=== PATIENT | female | born 1980 | race Caucasian/White ===

== ENCOUNTER 2022-05-09 08:30 | Outpatient (CLI) | payer OTHER, SELFPAY ==
--- NOTE | 2022-05-09 08:15 | CRLHL7_ITS ---
For Patients: As a result of the Century Cures Act, medical imaging exams and procedure reports are released immediately into your electronic medical record. You may view this report before your referring provider. If you have questions, please contact your health care provider. BILATERAL SCREENING MAMMOGRAM WITH COMPUTER-AIDED DETECTION AND TOMOSYNTHESIS TECHNIQUE: CC and MLO views were obtained. These mammographic images have been obtained using full-field digital technique. These mammographic images were interpreted with the benefit of computer-aided detection. Breast Tomosynthesis was used in this interpretation. COMPARISON FILM: 12/07/20, 10/08/19. FINDINGS: The breasts are heterogeneously dense, which may obscure small masses IMPRESSION: There is no radiographic evidence for malignancy. ASSESSMENT: BI-RADS Category 2: Benign RECOMMENDATION: Routine screening mammogram in 1 year. A lay language report of this examination will be provided to the patient. Kiel Escamilla M.D. Diagnostic Radiologist [email or web address] NIK/Dictated by: Kiel Escamilla MD @ 05/09/2022 9:50:00 AM (Electronically Signed)
== END 2022-05-09 08:31 | disposition home or self-care (01) ==
LOC: MAMMO 08:31
PROVIDERS: PCP Internal Medicine; Visit Provider Internal Medicine
DX: Z12.31 Encounter for screening mammogram for malignant neoplasm of breast (principal); R92.2 Inconclusive mammogram
CPT/HCPCS: 77063; 77067

== ENCOUNTER 2022-08-01 10:27 | Outpatient (CLI) | payer OTHER, SELFPAY ==
[2022-08-01 14:27] LABS: Albumin* 4.9 g/dL (3.3-5.0); Chloride* 96 mmol/L (96-114); Sodium* 138 mmol/L (135-149)
[2022-08-01 14:28] LABS: Potassium* 3.1 mmol/L (3.6-5.1)
[2022-08-01 14:30] LABS: Alkaline Phosphatase* 183 U/L (40-150); Aspartate Amino Transferase* 201 U/L (12-35); Carbon Dioxide* 30 mmol/L (20-32); Creatinine* 0.8 mg/dL (0.5-1.5); Estimated Glomerular Filt Rate 94 ml/min; Total Protein* 7.8 g/dL (6.0-8.3)
[2022-08-01 14:31] LABS: Alanine Aminotransferase* 108 U/L (4-35); Blood Urea Nitrogen* 11 mg/dL (5-24); Calcium* 9.9 mg/dL (8.4-10.6); Glucose* 96 mg/dL (60-115)
[2022-08-01 14:33] LABS: C Reactive Protein* 2.8 mg/dL (0.5-1.0)
== END 2022-08-01 10:28 | disposition home or self-care (01) ==
PROVIDERS: PCP Internal Medicine; Visit Provider Family Medicine
DX: R10.9 Unspecified abdominal pain (principal); R30.0 Dysuria
CPT/HCPCS: 80053; 86140; 87086

== ENCOUNTER 2022-10-26 12:05 | Outpatient (CLI) | payer OTHER, SELFPAY | END 2022-10-26 12:06 | disposition home or self-care (01) | LOC: NFLDREF 10-28 12:29 | PROVIDERS: PCP Internal Medicine; Referring Provider Internal Medicine; Visit Provider Internal Medicine | DX: E03.9 Hypothyroidism, unspecified (principal) | CPT/HCPCS: 84443 ==

== ENCOUNTER 2022-11-14 14:12 | Outpatient (CLI) | payer OTHER, SELFPAY | END 2022-11-14 14:13 | disposition home or self-care (01) | LOC: NFLDREF 11-16 03:32 | PROVIDERS: PCP Internal Medicine; Referring Provider Internal Medicine; Visit Provider Internal Medicine | DX: R30.0 Dysuria (principal); N39.0 Urinary tract infection, site not specified | CPT/HCPCS: 87086; 87186 ==

== ENCOUNTER 2023-01-27 21:30 | Inpatient (IN) | payer OTHER, SELFPAY ==
[2023-01-27] VITALS (12 sets, daily range): BP systolic 128–184; BP diastolic 88–114; PULSE 107–125; RESP 20; TEMP 36.8; O2SAT 95–99; BMI 26.6
[2023-01-27] MEDS: ONDANSETRON 2 MG/ML inj 4 MG IVP (22:46)
[2023-01-27] MEDS: 0.9 % SODIUM CHLORIDE 1000 ml 1,000 ML IV (22:46)
--- NOTE | 2023-01-27 23:06 | ED.GENADULT ---
HPI - General Adult General Chief complaint: Abdominal Pain Stated complaint: Abdominal Pain Time Seen by Provider: 01/27/23 22:25 History of Present Illness HPI narrative: Patient reports a few days of centralized abdominal pain as well as nausea and vomiting. Patient appears diaphoretic though temperature is 98.2 orally. Does endorse daily drinking though has recently begun to try and cut back. 42-year-old woman presenting to the emergency department with 1 week of mid upper abdominal pain and similar duration of vomiting. Also some diarrhea. No melena or hematochezia. Has tried treatment with Pepto-Bismol; this came up. Has to been vomiting water as well. Last alcoholic drink was about 5 days ago. No fever. She does not think she is in withdrawal. Has never attended treatment or detox. Has been working to cut back her alcohol consumption in discussion with her primary care provider. Does not have known gallbladder disease apparently. Reports taking medications as prescribed other than limitations by vomiting over this week. Related Data Home Medications Medication Instructions Recorded Confirmed levonorgestrel 21 mcg/24 hours (8 1 device intrauterine ONCE 08/01/22 03/12/23 yrs) 52 mg intrauterine device (Mirena) levothyroxine 75 mcg tablet 75 mcg PO DAILY 01/28/23 03/12/23 Previous Rx's Medication Instructions Recorded bupropion HCl 150 mg 24 hr tablet, 450 mg (3 x 150 mg) PO DAILY 02/21/23 extended release Depression #90 tabs spironolactone 100 mg tablet 100 mg PO DAILY Hypertension #30 05/30/23 tabs Allergies Allergy/AdvReac Type Severity Reaction Status Date / Time No Known Drug Allergies Allergy Verified 03/12/23 14:26 Review of Systems Status of ROS: Reports: 6 or more systems reviewed and unremarkable except as noted in History and below [facility] Medical History (Updated 02/07/23 @ 00:01 by Background Daemdelia) Pilonidal cyst ?L05.91 - Pilonidal cyst without abscess (ICD-10) Frequent UTI ?N39.0 - Urinary tract infection, site not specified (ICD-10) Alcoholism ?F10.20 - Alcohol dependence, uncomplicated (ICD-10) Generalized anxiety disorder ?F41.1 - Generalized anxiety disorder (ICD-10) Major depressive disorder ?F32.9 - Major depressive disorder, single episode, unspecified (ICD-10) Nicotine dependence (04/28/10) ?F17.200 - Nicotine dependence, unspecified, uncomplicated (ICD-10) Hypothyroidism ?E03.9 - Hypothyroidism, unspecified (ICD-10) Surgical History (Updated 01/28/23 @ 08:06 by Daisy Trimble MD) H/O breast biopsy (~2020) ?Z98.890 - Other specified postprocedural states (ICD-10) History of ureter repair ?Z98.890 - Other specified postprocedural states (ICD-10) Social History (Updated 01/28/23 @ 08:11 by Daisy Trimble MD) Narrative: Living with youngest son, 15 years old. 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 Quit tobacco (smoking) about 7 years ago. Started drinking alcohol heavily a couple of years ago. Has been sober a few times in the last few years. 4 drinks/night, hard selzer, occassionally cocktail. Alcohol use was problematic after a really tough break up and went through treatment in 2019. Current boyfriend is supportive and wanting to help her stop drinking again. What is your current living situation?: I presently have a place to live Problems where you live: no known problems Problems where you live details: none In the past 12 months, utilities in danger of being shut off: no In past 12 months, lack of transportation kept you from medical appts, meetings, work, or getting things needed for daily living: no In the past 12 mos, have been you worried that your food would run out before you had money to buy more?: never true In the past 12 mos, the food you bought just didn't last and you didn't have money to buy more?: never true Highest level of school completed/degree received: Associate degree: occupational, technical, vocational program Smoking Status: Never smoker How often do you have a drink containing alcohol: 4 or more times a week How many standard drinks containing alcohol do you have on a typical day: 5 or 6 How often do you have six or more drinks on one occasion: Weekly AUDIT-C Alcohol total score: 9 Non-prescribed substance use: denies use Caffeine: No How often does anyone, including family, friends and others, physically hurt you: never How often does anyone, including family, friends and others, insult or talk down to you: never How often does anyone, including family, friends and others, threaten you with harm: never How often does anyone, including family, friends and others, scream or curse at you: never Little interest or pleasure in doing things: several days Feeling down, depressed, or hopeless: more than half the days service: No Exam Narrative: Exam Narrative: Pleasant. Seems uncomfortable. At times appears about cry or vomit. Emesis bag nearby. Intermittent eye contact. Oropharynx with black and tongue consistent with vomiting Pepto-Bismol. Skin is warm and dry. Extremities are without edema. She is well-perfused. Oropharynx is sticky. There is mild smell of ketones. Lungs appear to be clear. Heart is tachycardic in a regular rhythm. Abdomen is with normoactive bowel sounds. Soft. Quite tender in the mid abdomen into the epigastrium little bit to the left hypogastrium as well. More mild tenderness across the low abdomen. Const: Vital Signs, click to edit/add: Vital Signs - 24 hr 01/27/23 21:41 01/27/23 21:41 01/27/23 22:42 Temperature 98.2 F Pulse Rate 116 H Pulse Rate [Pulse Oximeter] 125 H Respiratory Rate 20 Blood Pressure Blood Pressure [Ri ght Upper Arm] 184/114 H Pulse Oximetry 99 99 97 Oxygen Delivery Me thod Room Air Room Air 01/27/23 22:45 01/27/23 22:47 01/27/23 23:00 Temperature Pulse Rate 122 H 120 H 117 H Pulse Rate [Pulse Oximeter] Respiratory Rate Blood Pressure 156/88 H Blood Pressure [Ri ght Upper Arm] Pulse Oximetry 97 97 97 Oxygen Delivery Sc thod 01/27/23 23:02 01/27/23 23:15 01/27/23 23:17 Temperature Pulse Rate 115 H 121 H 115 H Pulse Rate [Pulse Oximeter] Respiratory Rate Blood Pressure 145/94 H 162/94 H Blood Pressure [Ri ght Upper Arm] Pulse Oximetry 96 96 95 Oxygen Delivery Sc thod 01/27/23 23:30 01/27/23 23:32 01/27/23 23:52 Temperature Pulse Rate 113 H 107 H 114 H Pulse Rate [Pulse Oximeter] Respiratory Rate Blood Pressure 128/111 H 156/99 H Blood Pressure [Ri ght Upper Arm] Pulse Oximetry 95 97 95 Oxygen Delivery Me thod 01/27/23 23:53 01/28/23 00:00 01/28/23 00:01 Temperature Pulse Rate 110 H 108 H 106 H Pulse Rate [Pulse Oximeter] Respiratory Rate Blood Pressure 147/97 H Blood Pressure [Ri ght Upper Arm] Pulse Oximetry 95 96 96 Oxygen Delivery Me thod 01/28/23 00:01 01/28/23 00:01 01/28/23 00:01 Temperature Pulse Rate 106 H 106 H 106 H Pulse Rate [Pulse Oximeter] Respiratory Rate Blood Pressure 147/97 H 147/97 H 147/97 H Blood Pressure [Ri ght Upper Arm] Pulse Oximetry 96 96 96 Oxygen Delivery Me thod Documenting provider has reviewed patient's vital signs: yes Course Course Hospital Course: This is a 42-year-old female who had recently seen Dr. Talley for concerns of alcoholism and wanting to quit. About 10 days ago she started having abdominal pain, nausea and vomiting that worsened and brought her into the emergency room. She was found to have acute alcoholic pancreatitis and hepatitis. She also had colitis on CT for which she will need a colonoscopy in a few weeks when she is feeling better. Please see diagnoses above for further details. With conservative management she improved and is able to tolerate adequate oral intake. She is discharged home in stable condition. Follow-up with her primary care provider. She is aware that I have recommended complete abstinence from alcohol indefinitely. Vital Signs Vital signs: Initial Vital Signs Temperature 98.2 F 01/27/23 21:41 Temperature Source Oral 01/27/23 21:41 Pulse Rate 125 H 01/27/23 21:41 Respiratory Rate 20 01/27/23 21:41 Blood Pressure 184/114 H 01/27/23 21:41 Blood Pressure Mean 137 H 01/27/23 21:41 Pulse Oximetry 99 01/27/23 21:41 Oxygen Delivery Method Room Air 01/27/23 21:41 Vital Signs Temperature 98.2 F 01/27/23 21:41 Pulse Rate 125 H 01/27/23 21:41 Respiratory Rate 20 01/27/23 21:41 Blood Pressure 184/114 H 01/27/23 21:41 Pulse Oximetry 99 01/27/23 21:41 Oxygen Delivery Method Room Air 01/27/23 21:41 Temperature 98.4 F 01/30/23 11:00 Pulse Rate 98 01/30/23 11:00 Respiratory Rate 16 01/30/23 11:00 Blood Pressure 138/103 H 01/30/23 11:00 Pulse Oximetry 98 01/30/23 11:00 Oxygen Delivery Method Room Air 01/30/23 11:00 Medical Decision Making MDM Narrative Medical decision making narrative: Leading differential is alcoholic pancreatitis. Might be alcoholic gastritis. Certainly dehydration. Less likely infectious gastroenteritis. Pending labs. Will be initiated on L of normal saline. Also getting Zofran. Does have quite a bit of pain I think would benefit from Dilaudid. I suspect will need to be admitted. Given degree of discomfort and anticipated diagnosis, I have already ordered abdomen pelvis contrasted CT. On reassessment with less nausea. Lipase initially at 1838. TSH also quite elevated. In October of this year was normal at about 1.5. Curious as I understand without medication changes and only been missing thyroid replacement over this week. Transaminases and indirect bilirubin are moderately elevated. Alcohol level as expected is negative. Review by me of contrasted CT abdomen pelvis appears to show some haziness about the pancreas. Pending over-read by Radiology ...eventually noting evidence of colitis but no convincing imaging evidence of pancreatitis. Clinically does have pancreatitis. Unclear etiology to this colitis at this time. Have discussed with overnight hospitalist for admission. Have written holding orders due to EMR downtime Medical Records Medical records reviewed: Yes I reviewed the patient's medical records Lab Data Lab results reviewed: Yes I reviewed the patient's lab results Labs: Lab Results 01/27/23 01/27/23 01/27/23 Range/Units 21:45 23:41 23:50 WBC 7.19 (4.50-11.00) K/uL RBC 4.05 (4.00-5.20) m/uL Hgb 15.5 (12.0-16.0) gm/dL Hct 43.9 (33.0-51.0) % MCV 108 H (80-100) fL MCH 38 H (26-34) pg MCHC 35 (32-36) gm/dL RDW Coeff of [place] 14.0 (11.5-15.5) % Plt Count 220 (140-440) K/uL Neut % (Auto) 66.3 (42.0-72.0) % Lymph % (Auto) 19.6 L (20-44) % Chaves % (Auto) 12.7 H (0.0-11.0) % Eos % (Auto) 0.3 (0.0-7.0) % Baso % (Auto) 0.3 (0.0-3.0) % Neut # (Auto) 4.77 (1.7-7.0) K/uL Lymph # (Auto) 1.40 (0.90-2.90) K/uL Chaves # (Auto) 0.90 (0.00-0.90) K/UL Eos # (Auto) 0.02 (0.00-0.50) K/uL Baso # (Auto) 0.02 (0.00-0.30) K/uL Sodium 131 L (135-149) mmol/L Potassium 3.2 L (3.6-5.1) mmol/L Chloride 95 L (96-114) mmol/L Carbon Dioxide 20 (20-32) mmol/L BUN 9 (5-24) mg/dL Creatinine 0.9 (0.5-1.5) mg/dL Estimated Creat Clear 66.67 Estimated GFR 81 ml/min Glucose 80 (60-115) mg/dL Lactate 2.8 H (0.5-1.9) mmol/L Calcium 9.6 (8.4-10.6) mg/dL Magnesium 1.9 (1.5-2.6) mg/dL Total Bilirubin 2.2 H (0.1-1.5) mg/dL Direct Bilirubin 0.6 H (0.0-0.5) mg/dL AST 242 H (12-35) U/L ALT 92 H (4-35) U/L Alkaline Phosphatase 174 H (40-150) U/L C-Reactive Protein 1.1 H (0.5-1.0) mg/dL Total Protein 8.7 H (6.0-8.3) g/dL Albumin 5.2 H (3.3-5.0) g/dL Triglycerides (40-149) mg/dL Lipase 1838 H (23-300) U/L TSH 9.960 H (0.270-4.20) uIU/mL Urine Color Yellow (Yellow) Urine Appearance Clear (Clear) Urine pH 6.5 (5.0-8.5) Ur Specific [place] <= 1.005 (1.000-1.030) Urine Protein Negative (Negative) Urine Glucose (UA) Negative (Negative) Urine Ketones 1+ A (Negative) Urine Blood Trace-lysed A (Negative) Urine Nitrite Negative (Negative) Urine Bilirubin Negative (Negative) Urine Urobilinogen 0.2 (0.2-1.0) Ur Leukocyte Esterase Negative (Negative) Urine RBC 5-10 A (0-2) Urine WBC 0-2 (0-5) Ur Squamous Epith Cells Few (None-Few) Urine Bacteria Few A (None) Ur Creatinine per Vol mg/dL Ur Creatinine 24 Hour (700-1600) mg/d U Collection Duration hr Urine Total Volume mL Ur Sodium per Vol mmol/L Ur Sodium mmol/Day (51-286) mmol/d Urine Opiates Screen Negative (Negative) Ur Oxycodone Screen Negative (Negative) Urine Methadone Screen Negative (Negative) Ur Propoxyphene Screen Negative (Negative) Ur Barbiturates Screen Negative (Negative) U Tricyclic Antidepress Negative (Negative) Ur Phencyclidine Scrn Negative (Negative) Ur Amphetamines Screen Negative (Negative) U Methamphetamines Scrn Negative (Negative) U Benzodiazepines Scrn Negative (Negative) Urine Cocaine Screen Negative (Negative) U Marijuana (THC) Screen POSITIVE A* (Negative) Ur Drug Screen Comment See Note Ethyl Alcohol < 0.01 L (0.01-0.03) % Lab Acknowledgement Test Added 01/28/23 01/28/23 Range/Units 04:42 06:07 WBC (4.50-11.00) K/uL RBC (4.00-5.20) m/uL Hgb (12.0-16.0) gm/dL Hct (33.0-51.0) % MCV (80-100) fL MCH (26-34) pg MCHC (32-36) gm/dL RDW Coeff of [place] (11.5-15.5) % Plt Count (140-440) K/uL Neut % (Auto) (42.0-72.0) % Lymph % (Auto) (20-44) % Chaves % (Auto) (0.0-11.0) % Eos % (Auto) (0.0-7.0) % Baso % (Auto) (0.0-3.0) % Neut # (Auto) (1.7-7.0) K/uL Lymph # (Auto) (0.90-2.90) K/uL Chaves # (Auto) (0.00-0.90) K/UL Eos # (Auto) (0.00-0.50) K/uL Baso # (Auto) (0.00-0.30) K/uL Sodium 136 (135-149) mmol/L Potassium 3.3 L (3.6-5.1) mmol/L Chloride 103 (96-114) mmol/L Carbon Dioxide 23 (20-32) mmol/L BUN 8 (5-24) mg/dL Creatinine 0.8 (0.5-1.5) mg/dL Estimated Creat Clear 75.01 Estimated GFR 94 ml/min Glucose 67 (60-115) mg/dL Lactate (0.5-1.9) mmol/L Calcium 8.0 L (8.4-10.6) mg/dL Magnesium 2.0 (1.5-2.6) mg/dL Total Bilirubin (0.1-1.5) mg/dL Direct Bilirubin (0.0-0.5) mg/dL AST (12-35) U/L ALT (4-35) U/L Alkaline Phosphatase (40-150) U/L C-Reactive Protein (0.5-1.0) mg/dL Total Protein (6.0-8.3) g/dL Albumin (3.3-5.0) g/dL Triglycerides 113 (40-149) mg/dL Lipase (23-300) U/L TSH (0.270-4.20) uIU/mL Urine Color (Yellow) Urine Appearance (Clear) Urine pH (5.0-8.5) Ur Specific [place] (1.000-1.030) Urine Protein (Negative) Urine Glucose (UA) (Negative) Urine Ketones (Negative) Urine Blood (Negative) Urine Nitrite (Negative) Urine Bilirubin (Negative) Urine Urobilinogen (0.2-1.0) Ur Leukocyte Esterase (Negative) Urine RBC (0-2) Urine WBC (0-5) Ur Squamous Epith Cells (None-Few) Urine Bacteria (None) Ur Creatinine per Vol 47 mg/dL Ur Creatinine 24 Hour Not Applicable (700-1600) mg/d U Collection Duration Random hr Urine Total Volume Random mL Ur Sodium per Vol 22 mmol/L Ur Sodium mmol/Day Not Applicable (51-286) mmol/d Urine Opiates Screen (Negative) Ur Oxycodone Screen (Negative) Urine Methadone Screen (Negative) Ur Propoxyphene Screen (Negative) Ur Barbiturates Screen (Negative) U Tricyclic Antidepress (Negative) Ur Phencyclidine Scrn (Negative) Ur Amphetamines Screen (Negative) U Methamphetamines Scrn (Negative) U Benzodiazepines Scrn (Negative) Urine Cocaine Screen (Negative) U Marijuana (THC) Screen (Negative) Ur Drug Screen Comment Ethyl Alcohol (0.01-0.03) % Lab Acknowledgement Test Added Discharge Plan Discharge Clinical Impression: Acute alcoholic pancreatitis, Abdominal pain, Dehydration, Colitis Condition: Improved Activity Level: No Restrictions Discharge Diet: Regular
[2023-01-27] MEDS: HYDROmorphone 0.5 mg/0.5 ml inj IVP (23:11)
[2023-01-27 23:13] LABS: Lactate* 2.8 mmol/L (0.5-1.9)
[2023-01-27 23:15] LABS: Basophils Absolute Auto 0.02 K/uL (0.00-0.30); Basophils Percent Auto 0.3 % (0.0-3.0); Eosinophils Absolute Auto 0.02 K/uL (0.00-0.50); Eosinophils Percent Auto 0.3 % (0.0-7.0); Hematocrit 43.9 % (33.0-51.0); Hemoglobin* 15.5 gm/dL (12.0-16.0); Immature Granulocytes Abs Auto 0.06 K/uL (0.00-0.30); Immature Granulocytes Pct Auto 0.8 %; Lymphocytes Percent Auto 19.6 % (20-44); Mean Corpuscular HGB Conc 35 gm/dL (32-36); Mean Corpuscular Hemoglobin 38 pg (26-34); Mean Corpuscular Volume 108 fL (80-100); Monocytes Percent Auto 12.7 % (0.0-11.0); Neutrophils Absolute Auto 4.77 K/uL (1.7-7.0); Neutrophils Percent Auto 66.3 % (42.0-72.0); Platelet Count* 220 K/uL (140-440); Red Blood Count 4.05 m/uL (4.00-5.20); Slide Review Reflex No; White Blood Count* 7.19 K/uL (4.50-11.00)
--- NOTE | 2023-01-27 23:19 | CRLHL7_ITS ---
For Patients: As a result of the Century Cures Act, medical imaging exams and procedure reports are released immediately into your electronic medical record. You may view this report before your referring provider. If you have questions, please contact your health care provider. INDICATION: Mid upper abdominal pain for 1 week with vomiting, evaluate for pancreatitis TECHNIQUE: Contrast-enhanced CT of the abdomen and pelvis was performed after administration of 74 cc Isovue 370. Coronal and sagittal reformats were obtained on an independent workstation. COMPARISON: None FINDINGS: Chest: Lung bases: Calcified granuloma in the right lower lobe. No suspicious pulmonary nodules or consolidation. No basilar pleural effusion. Heart base: Unremarkable. Abdomen/Pelvis: Liver: Non-cirrhotic morphology. Diffuse hypoattenuation of the liver. No suspicious lesion. Gallbladder: Hydropic with no wall thickening or pericholecystic fluid. Bile ducts no intra or extrahepatic biliary ductal dilatation. Spleen: Normal in size. Calcified granuloma suggestive of prior granulomatous infection. Adrenal glands: Unremarkable. Kidneys: Symmetric enhancement with no hydronephrosis or nephrolithiasis bilaterally. Pancreas: No inflammation, fluid collection, mass or pancreatic ductal dilatation. Lymph nodes: No retroperitoneal, mesenteric, inguinal, or pelvic adenopathy by CT criteria. Bowel: Small and large bowel is normal in caliber, without obstruction. Normal appendix (2/109). Mucosal hyperenhancement of the cecum and colon at the hepatic flexure with liquid stool and fat stranding in the right paracolic gutter (2/81, 93, 4/62). No pneumatosis, pneumoperitoneum or portal venous gas. Vascular structures: Abdominal aorta is normal in caliber, without aneurysm. Proximal mesenteric vessels are patent. Hepatic, portal, splenic and bilateral renal veins are patent. Peritoneum: No abdominal/pelvic ascites. Abdominal Wall: Unremarkable. Urinary bladder: Limited evaluation due to underdistention. No gross pathology. Reproductive structures: IUD is in place. MSK: No acute fractures. No aggressive appearing lytic or blastic osseous lesion. IMPRESSION: 1. No CT evidence of acute pancreatitis, as clinically queried. 2. Mucosal hyperenhancement of the cecum and colon at the hepatic flexure with liquid stool and fat stranding in the right paracolic gutter suggestive of colitis of infectious or inflammatory etiology. Normal appendix. - Recommend a colonoscopy after symptomatic improvement to evaluate for any underlying lesion. 3. Diffuse hepatic steatosis. Please note that all CT scans at this facility use dose modulation, iterative reconstruction, and/or weight-based dosing when appropriate to reduce radiation dose to as low as reasonably achievable. Dictated by Marina Gr MD @ 01/28/2023 1:03:52 AM (Electronically Signed)
[2023-01-27 23:31] LABS: Albumin* 5.2 g/dL (3.3-5.0); Chloride* 95 mmol/L (96-114)
[2023-01-27 23:32] LABS: Potassium* 3.2 mmol/L (3.6-5.1); Sodium* 131 mmol/L (135-149)
[2023-01-27 23:34] LABS: Creatinine* 0.9 mg/dL (0.5-1.5); Est. Creatinine Clearance* 66.67; Estimated Glomerular Filt Rate 81 ml/min
[2023-01-27 23:35] LABS: Alanine Aminotransferase* 92 U/L (4-35); Alkaline Phosphatase* 174 U/L (40-150); Aspartate Amino Transferase* 242 U/L (12-35); Bilirubin Direct* 0.6 mg/dL (0.0-0.5); Bilirubin Total* 2.2 mg/dL (0.1-1.5); Blood Urea Nitrogen* 9 mg/dL (5-24); Calcium* 9.6 mg/dL (8.4-10.6); Carbon Dioxide* 20 mmol/L (20-32); Glucose* 80 mg/dL (60-115); Lipase* 1838 U/L (23-300); Total Protein* 8.7 g/dL (6.0-8.3)
[2023-01-27 23:38] LABS: C Reactive Protein* 1.1 mg/dL (0.5-1.0)
[2023-01-27 23:45] LABS: Ethanol* < 0.01 % (0.01-0.03)
[2023-01-27 23:56] LABS: Appearance Urine Clear (Clear); Bilirubin Urine Negative (Negative); Blood Urine Trace-lysed (Negative); Color Urine Yellow (Yellow); Glucose Urine Negative (Negative); Ketones Urine 1+ (Negative); Leukocyte Esterase Urine Negative (Negative); Nitrite Urine Negative (Negative); Protein Urine Negative (Negative); Specific Gravity Urine <= 1.005 (1.000-1.030); Urobilinogen Urine 0.2 (0.2-1.0); pH Urine 6.5 (5.0-8.5)
[2023-01-27 23:58] LABS: Magnesium* 1.9 mg/dL (1.5-2.6)
[2023-01-28] VITALS (9 sets, daily range): BP systolic 147–168; BP diastolic 94–98; PULSE 83–108; RESP 12–18; TEMP 36.1–36.8; O2SAT 95–100; BMI 27.2
[2023-01-28 00:09] LABS: Amphetamine Screen Urine Negative (Negative); Barbiturate Screen Urine Negative (Negative); Benzodiazepines Screen Urine Negative (Negative); Cocaine Screen Urine Negative (Negative); Methadone Screen Urine Negative (Negative); Methamphetamines Screen Urine Negative (Negative); Opiate Screen Urine Negative (Negative); Oxycodone Screen Urine Negative (Negative); Phencyclidine Screen Urine Negative (Negative); Tricyclic Antidepressant Urine Negative (Negative)
[2023-01-28 00:10] LABS: Cannabinoid Screen Urine POSITIVE (Negative)
[2023-01-28 00:18] LABS: Bacteria Urine Few; Squamous Epithelial Cell Urine Few (None-Few); WBC Urine 0-2 (0-5)
[2023-01-28] MEDS: 0.9 % SODIUM CHLORIDE 1000 ml 1,000 ML IV (00:59)
[2023-01-28] MEDS: MORPHINE 2 MG/ML inj IVP (02:15)
--- NOTE | 2023-01-28 04:28 | PM.FPHP ---
History of Present Illness History of Present Illness Date Seen: 01/27/23 Chief complaint: Abdominal Pain Narrative: Yael Rodriguez is a 42 year old female This patient is a 42-year-old female with a past medical history for alcohol abuse, anxiety/depression, hypothyroidism, acne who presents with abdominal pain. The patient states that she has had a 1 week of mid abdominal pain points to the epigastrium that has been worsening. She denies any change in bowel habits. She denies fevers chills. She denies chest pain shortness of breath. The patient currently works in the radiology department locally. She has been working with her PCP to decrease alcohol intake. Currently she drinks about 4 drinks of alcohol per day. She states that her last drink was 5 days ago and she denies any changes or symptoms of alcohol withdrawal. Review of Systems Status of ROS: Reports: 10 or more systems reviewed and unremarkable except as noted in History and below PFSH PFS Surgical History History of ureter repair ?Z98.890 - Other specified postprocedural states (ICD-10) Social History Smoking Status: Former smoker How often do you have a drink containing alcohol: 4 or more times a week How many standard drinks containing alcohol do you have on a typical day: 3 or 4 How often do you have six or more drinks on one occasion: Weekly AUDIT-C Alcohol total score: 8 Non-prescribed substance use: denies use Little interest or pleasure in doing things: several days Feeling down, depressed, or hopeless: more than half the days Meds Home Medications and Allergies Home Medications Medication Instructions Recorded Confirmed Type levonorgestrel 21 mcg/24 hours (8 1 device intrauterine ONCE 08/01/22 12/25/22 History yrs) 52 mg intrauterine device (Mirena) Allergies Allergy/AdvReac Type Severity Reaction Status Date / Time No Known Drug Allergies Allergy Verified 12/25/22 14:58 Exam Const: Vital Signs, click to edit/add: Vital Signs - 24 hr 01/27/23 21:41 01/27/23 21:41 01/27/23 22:42 Temperature 98.2 F Pulse Rate 116 H Pulse Rate [Pulse Oximeter] 125 H Respiratory Rate 20 Blood Pressure Blood Pressure [Ri ght Upper Arm] 184/114 H Pulse Oximetry 99 99 97 Oxygen Delivery Me thod Room Air Room Air 01/27/23 22:45 01/27/23 22:47 01/27/23 23:00 Temperature Pulse Rate 122 H 120 H 117 H Pulse Rate [Pulse Oximeter] Respiratory Rate Blood Pressure 156/88 H Blood Pressure [Ri ght Upper Arm] Pulse Oximetry 97 97 97 Oxygen Delivery Me thod 01/27/23 23:02 01/27/23 23:15 01/27/23 23:17 Temperature Pulse Rate 115 H 121 H 115 H Pulse Rate [Pulse Oximeter] Respiratory Rate Blood Pressure 145/94 H 162/94 H Blood Pressure [Ri ght Upper Arm] Pulse Oximetry 96 96 95 Oxygen Delivery Me thod 01/27/23 23:30 01/27/23 23:32 01/27/23 23:52 Temperature Pulse Rate 113 H 107 H 114 H Pulse Rate [Pulse Oximeter] Respiratory Rate Blood Pressure 128/111 H 156/99 H Blood Pressure [Ri ght Upper Arm] Pulse Oximetry 95 97 95 Oxygen Delivery Me thod 01/27/23 23:53 01/28/23 00:00 01/28/23 00:01 Temperature Pulse Rate 110 H 108 H 106 H Pulse Rate [Pulse Oximeter] Respiratory Rate Blood Pressure 147/97 H Blood Pressure [Ri ght Upper Arm] Pulse Oximetry 95 96 96 Oxygen Delivery Me thod 01/28/23 00:01 01/28/23 00:01 01/28/23 00:01 Temperature Pulse Rate 106 H 106 H 106 H Pulse Rate [Pulse Oximeter] Respiratory Rate Blood Pressure 147/97 H 147/97 H 147/97 H Blood Pressure [Ri ght Upper Arm] Pulse Oximetry 96 96 96 Oxygen Delivery Me thod : Other: Has been decreased recently on alcohol intake prior to 4 days per drink daily, 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 facial muscles grossly intact, moves all extremities without any significant focal deficit appreciated by nurse Results Labs Labs: Abnormal lab results 01/27/23 01/27/23 Range/Units 21:45 23:50 MCV 108 H (80-100) fL MCH 38 H (26-34) pg Lymph % (Auto) 19.6 L (20-44) % [place] % (Auto) 12.7 H (0.0-11.0) % Sodium 131 L (135-149) mmol/L Potassium 3.2 L (3.6-5.1) mmol/L Chloride 95 L (96-114) mmol/L Lactate 2.8 H (0.5-1.9) mmol/L Total Bilirubin 2.2 H (0.1-1.5) mg/dL Direct Bilirubin 0.6 H (0.0-0.5) mg/dL AST 242 H (12-35) U/L ALT 92 H (4-35) U/L Alkaline Phosphatase 174 H (40-150) U/L C-Reactive Protein 1.1 H (0.5-1.0) mg/dL Total Protein 8.7 H (6.0-8.3) g/dL Albumin 5.2 H (3.3-5.0) g/dL Lipase 1838 H (23-300) U/L TSH 9.960 H (0.270-4.20) uIU/mL Urine Ketones 1+ A (Negative) Urine Blood Trace-lysed A (Negative) Urine RBC 5-10 A (0-2) Urine Bacteria Few A (None) U Marijuana (THC) Screen POSITIVE A* (Negative) Ethyl Alcohol < 0.01 L (0.01-0.03) % Short CBC 01/27/23 Range/Units 21:45 WBC 7.19 (4.50-11.00) K/uL Hgb 15.5 (12.0-16.0) gm/dL Hct 43.9 (33.0-51.0) % Plt Count 220 (140-440) K/uL BMP 01/27/23 21:45 Sodium 131 L Potassium 3.2 L Chloride 95 L Carbon Dioxide 20 BUN 9 Creatinine 0.9 Glucose 80 Calcium 9.6 Liver Function 01/27/23 Range/Units 21:45 Total Bilirubin 2.2 H (0.1-1.5) mg/dL Direct Bilirubin 0.6 H (0.0-0.5) mg/dL AST 242 H (12-35) U/L ALT 92 H (4-35) U/L Alkaline Phosphatase 174 H (40-150) U/L Albumin 5.2 H (3.3-5.0) g/dL Urine 01/27/23 Range/Units 23:50 Urine Color Yellow (Yellow) Urine Appearance Clear (Clear) Urine pH 6.5 (5.0-8.5) Ur Specific [place] <= 1.005 (1.000-1.030) Urine Protein Negative (Negative) Urine Glucose (UA) Negative (Negative) All other labs normal. Assessment and Plan Assessment and plan (1) Acute alcoholic pancreatitis: Status: Acute Plan This patient is a 42-year-old female with a past medical history for alcohol abuse, anxiety/depression, hypothyroidism, acne who presents with abdominal pain. Alcoholic pancreatitis, evidence of colitis on CT of the abdomen normal white blood cell count afebrile. Elevated lipase. We will treat with IV fluids, pain control, bowel rest we will keep n.p.o. For colitis we will hold antibiotics at this this time continue IV fluids pain control no diarrhea. Alcoholic pancreatitis seems to be the main culprit of symptoms at this time. The patient's last drink was 5 days ago and she shows no signs of withdrawal currently Hyponatremia sodium 132 most likely due to hypovolemia from poor p.o. we will continue IV fluids normal saline patient is asymptomatic currently from slightly lower sodium. We will recheck BMP in the morning and urine sodium as well. Anxiety and depression will hold Wellbutrin while NPO Hypertension we will hold spironolactone for now, will order IV hydralazine as needed Hypothyroidism we will hold levothyroxine for now while n.p.o. and when the patient is able to tolerate DVT prophylaxis Lovenox Thank you for including [facility] Hospitalist in the patients care. This service is available for further assistance as requested by your care team by calling [phone].
[2023-01-28] MEDS: 0.9 % SODIUM CHLORIDE 1000 ml 1,000 ML 125 ML IV (05:43)
--- NOTE | 2023-01-28 06:28 | PC.NURSE ---
Patient is a 42 yo F admitted from ED for abd pain, N/V, and diarrhea for the last 7+ days. Arrived on the floor at 0115, vss, on RA, NPO, A&O x 4. 2000ml bolus of NS given between the ER and Med/Surg unit, following that order is for NS running @ 125ml/hr. Patient is up ad-gely in her, A&O x 4. She has a hx of alcohol abuse (sometimes 6+ drinks a day) but stated during admission on Med/Surg that d/t her current ongoing condition has not imbibed in around five days. 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 Her pain starts in her left medial abd and travels around to her back.
[2023-01-28 07:08] LABS: Chloride* 103 mmol/L (96-114)
[2023-01-28 07:09] LABS: Potassium* 3.3 mmol/L (3.6-5.1); Sodium* 136 mmol/L (135-149)
[2023-01-28 07:11] LABS: Creatinine* 0.8 mg/dL (0.5-1.5); Est. Creatinine Clearance* 75.01; Estimated Glomerular Filt Rate 94 ml/min
[2023-01-28 07:12] LABS: Blood Urea Nitrogen* 8 mg/dL (5-24); Carbon Dioxide* 23 mmol/L (20-32); Glucose* 67 mg/dL (60-115)
--- NOTE | 2023-01-28 07:53 | PM.IMHP1 ---
Hospitalist- H&P: HPI History of Present Illness Time Seen by Provider: 07:45 Date Seen: 01/28/23 Chief complaint: Abdominal Pain Narrative: Yael Rodriguez is a 42 year old female with h/o alcohol use who started having epigastric pain with bloating and vomiting a week ago Sunday. She couldn't even keep water down. Had to stay home from work. Pain getting worse and started radiating to right and back. No fevers. Was having cold sweats. 1 dark stool after taking peptobismol. No other dark stools, melena, bright red blood per rectum, hematemesis or coffee-ground emesis. She has never had pancreatitis before. She started drinking alcohol heavily around 4 years ago when she had a bad break-up. She voluntarily went in to treatment in 2019 and was successful in being sober for a period of time. She has been with her current boyfriend now for about 3 years and occasionally relaxed her sobriety, but later realized that it would lead to heavy drinking again and would stop. About 3 weeks ago she saw Dr. Talley in clinic asking about medications for alcohol treatment without going through an actual outpatient treatment program and noted that Dr. Talley was going to prescribe her something, but she had to be slightly sober before starting it. Review of Systems Status of ROS: Reports: 10 or more systems reviewed and unremarkable except as noted in History and below Const: Reports: chills; Denies: fever Eyes: Denies: change in vision or blurry vision Cardio: Reports: other (heart racing, better now after fluid); Denies: chest pain, palpitations or shortness of breath with exertion Resp: Denies: shortness of breath GI: Reports: abdominal pain, nausea and vomiting; Denies: coffee grounds in vomit, diarrhea or constipation : Reports: decreased urine ouput; Denies: painful urination Musculo: Reports: back pain PFSH [facility] Medical History (Updated 01/28/23 @ 08:48 by Daisy Trimble MD) Pilonidal cyst ?L05.91 - Pilonidal cyst without abscess (ICD-10) Frequent UTI ?N39.0 - Urinary tract infection, site not specified (ICD-10) Alcoholism ?F10.20 - Alcohol dependence, uncomplicated (ICD-10) Generalized anxiety disorder ?F41.1 - Generalized anxiety disorder (ICD-10) Major depressive disorder ?F32.9 - Major depressive disorder, single episode, unspecified (ICD-10) Nicotine dependence (04/28/10) ?F17.200 - Nicotine dependence, unspecified, uncomplicated (ICD-10) Hypothyroidism ?E03.9 - Hypothyroidism, unspecified (ICD-10) Surgical History (Updated 01/28/23 @ 08:06 by Daisy Trimble MD) H/O breast biopsy (~2020) ?Z98.890 - Other specified postprocedural states (ICD-10) History of ureter repair ?Z98.890 - Other specified postprocedural states (ICD-10) Social History (Updated 01/28/23 @ 08:11 by Daisy Trimble MD) Narrative: Living with youngest son, 15 years old. 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 Quit tobacco (smoking) about 7 years ago. Started drinking alcohol heavily a couple of years ago. Has been sober a few times in the last few years. 4 drinks/night, hard selzer, occassionally cocktail. Alcohol use was problematic after a really tough break up and went through treatment in 2019. Current boyfriend is supportive and wanting to help her stop drinking again. What is your current living situation: I presently have a place to live Problems where you live: no known problems Problems where you live details: none In the past 12 months, utilities in danger of being shut off: no In the past 12 mos, have been you worried that your food would run out before you had money to buy more?: never true In the past 12 mos, the food you bought just didn't last and you didn't have money to buy more?: never true Highest level of school completed/degree received: Associate degree: occupational, technical, vocational program Smoking Status: Never smoker How often do you have a drink containing alcohol: 4 or more times a week How many standard drinks containing alcohol do you have on a typical day: 5 or 6 How often do you have six or more drinks on one occasion: Weekly AUDIT-C Alcohol total score: 9 Non-prescribed substance use: denies use Caffeine: No How often does anyone, including family, friends and others, physically hurt you: How often does anyone, including family, friends and others, insult or talk down to you: How often does anyone, including family, friends and others, threaten you with harm: How often does anyone, including family, friends and others, scream or curse at you: Little interest or pleasure in doing things: several days Feeling down, depressed, or hopeless: more than half the days service: No Meds Home Medications and Allergies Home Medications Medication Instructions Recorded Confirmed Type levonorgestrel 21 mcg/24 hours (8 1 device intrauterine ONCE 08/01/22 01/28/23 History yrs) 52 mg intrauterine device (Mirena) bupropion HCl 450 mg 24 hr tablet, 450 mg PO DAILY 01/28/23 01/28/23 History extended release levothyroxine 75 mcg tablet 75 mcg PO DAILY 01/28/23 01/28/23 History spironolactone 100 mg tablet 100 mg PO DAILY 01/28/23 01/28/23 History Allergies Allergy/AdvReac Type Severity Reaction Status Date / Time No Known Drug Allergies Allergy Verified 12/25/22 14:58 Exam Narrative: Exam Narrative: General: No acute distress. Appears to be in pain. A little tearful. Awake alert oriented x3. HEENT: Normocephalic atraumatic, pupils equally round and reactive to light and accommodation. Oropharynx clear. Mucous membranes are slightly dry. No cervical lymphadenopathy, thyromegaly or carotid bruits. No JVD. Cardiovascular: Regular rate and rhythm. No murmurs, gallops, or rubs. Chest: No increased work of breathing. Clear to auscultation bilaterally. No crackles or wheezes. Abdomen: Bowel sounds present. Soft, nondistended, tender in the epigastrium and right upper quadrant, no rebound tenderness. No hepatosplenomegaly or masses. Extremities: No edema, no cyanosis or clubbing. Skin: No jaundice, no pallor, no rashes. Neuro: Grossly intact. No focal deficits. Const: Vital Signs, click to edit/add: Vital Signs - 24 hr 01/27/23 21:41 01/27/23 21:41 01/27/23 22:42 Temperature 98.2 F Pulse Rate 116 H Pulse Rate [Pulse Oximeter] 125 H Respiratory Rate 20 Blood Pressure Blood Pressure [Le ft Arm] Blood Pressure [Ri ght Upper Arm] 184/114 H Pulse Oximetry 99 99 97 Oxygen Delivery Me thod Room Air Room Air 01/27/23 22:45 01/27/23 22:47 01/27/23 23:00 Temperature Pulse Rate 122 H 120 H 117 H Pulse Rate [Pulse Oximeter] Respiratory Rate Blood Pressure 156/88 H Blood Pressure [Le ft Arm] Blood Pressure [Ri ght Upper Arm] Pulse Oximetry 97 97 97 Oxygen Delivery Me thod 01/27/23 23:02 01/27/23 23:15 01/27/23 23:17 Temperature Pulse Rate 115 H 121 H 115 H Pulse Rate [Pulse Oximeter] Respiratory Rate Blood Pressure 145/94 H 162/94 H Blood Pressure [Le ft Arm] Blood Pressure [Ri ght Upper Arm] Pulse Oximetry 96 96 95 Oxygen Delivery Me thod 01/27/23 23:30 01/27/23 23:32 01/27/23 23:52 Temperature Pulse Rate 113 H 107 H 114 H Pulse Rate [Pulse Oximeter] Respiratory Rate Blood Pressure 128/111 H 156/99 H Blood Pressure [Le ft Arm] Blood Pressure [Ri ght Upper Arm] Pulse Oximetry 95 97 95 Oxygen Delivery Me thod 01/27/23 23:53 01/28/23 00:00 01/28/23 00:01 Temperature Pulse Rate 110 H 108 H 106 H Pulse Rate [Pulse Oximeter] Respiratory Rate Blood Pressure 147/97 H Blood Pressure [Le ft Arm] Blood Pressure [Ri ght Upper Arm] Pulse Oximetry 95 96 96 Oxygen Delivery Me thod 01/28/23 00:01 01/28/23 00:01 01/28/23 00:01 Temperature Pulse Rate 106 H 106 H 106 H Pulse Rate [Pulse Oximeter] Respiratory Rate Blood Pressure 147/97 H 147/97 H 147/97 H Blood Pressure [Le ft Arm] Blood Pressure [Ri ght Upper Arm] Pulse Oximetry 96 96 96 Oxygen Delivery Me thod 01/28/23 01:20 01/28/23 01:20 Temperature 97.6 F Pulse Rate Pulse Rate [Pulse Oximeter] Respiratory Rate 12 12 Blood Pressure Blood Pressure [Le ft Arm] 153/95 H Blood Pressure [Ri ght Upper Arm] Pulse Oximetry 96 96 Oxygen Delivery Me thod Room Air Room Air Documenting provider has reviewed patient's vital signs: yes Hospitalist - H&P: Result Labs Labs: Short CBC 01/27/23 Range/Units 21:45 WBC 7.19 (4.50-11.00) K/uL Hgb 15.5 (12.0-16.0) gm/dL Hct 43.9 (33.0-51.0) % Plt Count 220 (140-440) K/uL BMP 01/27/23 01/28/23 21:45 06:07 Sodium 131 L 136 Potassium 3.2 L 3.3 L Chloride 95 L 103 Carbon Dioxide 20 23 BUN 9 8 Creatinine 0.9 0.8 Glucose 80 67 Calcium 9.6 8.0 L Liver Function 01/27/23 Range/Units 21:45 Total Bilirubin 2.2 H (0.1-1.5) mg/dL Direct Bilirubin 0.6 H (0.0-0.5) mg/dL AST 242 H (12-35) U/L ALT 92 H (4-35) U/L Alkaline Phosphatase 174 H (40-150) U/L Albumin 5.2 H (3.3-5.0) g/dL Urine 01/27/23 Range/Units 23:50 Urine Color Yellow (Yellow) Urine Appearance Clear (Clear) Urine pH 6.5 (5.0-8.5) Ur Specific [place] <= 1.005 (1.000-1.030) Urine Protein Negative (Negative) Urine Glucose (UA) Negative (Negative) Ordering Physician: Kiel Villalobos M.D. Date of Service: 01/27/23 Procedure(s): CT abdomen pelvis w con Accession Number(s): [id number] cc: Anu Talley M.D.; Kiel Villalobos M.D.~ For Patients: As a result of the 21st Century Cures Act, medical imaging exams and procedure reports are released immediately into your electronic medical record. You may view this report before your referring provider. If you have questions, please contact your health care provider. INDICATION: Mid upper abdominal pain for 1 week with vomiting, evaluate for pancreatitis TECHNIQUE: Contrast-enhanced CT of the abdomen and pelvis was performed after administration of 74 cc Isovue 370. Coronal and sagittal reformats were obtained on an independent workstation. COMPARISON: None FINDINGS: Chest: Lung bases: Calcified granuloma in the right lower lobe. No suspicious pulmonary nodules or consolidation. No basilar pleural effusion. Heart base: Unremarkable. Abdomen/Pelvis: Liver: Non-cirrhotic morphology. Diffuse hypoattenuation of the liver. No suspicious lesion. Gallbladder: Hydropic with no wall thickening or pericholecystic fluid. Bile ducts no intra or extrahepatic biliary ductal dilatation. Spleen: Normal in size. Calcified granuloma suggestive of prior granulomatous infection. Adrenal glands: Unremarkable. Kidneys: Symmetric enhancement with no hydronephrosis or nephrolithiasis bilaterally. Pancreas: No inflammation, fluid collection, mass or pancreatic ductal dilatation. Lymph nodes: No retroperitoneal, mesenteric, inguinal, or pelvic adenopathy by CT criteria. Bowel: Small and large bowel is normal in caliber, without obstruction. Normal appendix (2/109). Mucosal hyperenhancement of the cecum and colon at the hepatic flexure with liquid stool and fat stranding in the right paracolic gutter (2/81, 93, 4/62). No pneumatosis, pneumoperitoneum or portal venous gas. Vascular structures: Abdominal aorta is normal in caliber, without aneurysm. Proximal mesenteric vessels are patent. Hepatic, portal, splenic and bilateral renal veins are patent. Peritoneum: No abdominal/pelvic ascites. Abdominal Wall: Unremarkable. Urinary bladder: Limited evaluation due to underdistention. No gross pathology. Reproductive structures: IUD is in place. MSK: No acute fractures. No aggressive appearing lytic or blastic osseous lesion. IMPRESSION: 1. No CT evidence of acute pancreatitis, as clinically queried. 2. Mucosal hyperenhancement of the cecum and colon at the hepatic flexure with liquid stool and fat stranding in the right paracolic gutter suggestive of colitis of infectious or inflammatory etiology. Normal appendix. - Recommend a colonoscopy after symptomatic improvement to evaluate for any underlying lesion. 3. Diffuse hepatic steatosis. Please note that all CT scans at this facility use dose modulation, iterative reconstruction, and/or weight-based dosing when appropriate to reduce radiation dose to as low as reasonably achievable. Dictated by Marina rG MD @ 01/28/2023 1:03:52 AM (Electronically Signed) Assessment and Plan Assessment and plan (1) Acute alcoholic pancreatitis: Problem comment: - Acute pancreatitis, suspect secondary to alcohol. Differential also includes cholelithiasis and hypertriglyceridemia as causes. Check triglycerides and RUQ US. - continue IV fluids, increased rate, changed to LR for low potassium. Keep NPO except for sips and chips and advanced to clears if able later today or tomorrow. Status: Suspected (2) Alcoholic hepatitis: Problem comment: Supportive cares. Right upper quadrant ultrasound and recheck LFTs in a.m.. Status: Acute (3) Colitis: Problem comment: Will need outpatient colonoscopy when acute pancreatitis and hepatitis have resolved Status: Acute (4) Dehydration: Problem comment: Improving. Increase IV fluid rate, advanced to clears when able Status: Acute (5) Hypokalemia: Problem comment: Change fluids to LR and recheck in the morning. Also check a magnesium. Status: Acute (6) Hepatic steatosis: Problem comment: Check right upper quadrant ultrasound Status: Acute (7) Alcoholism: Problem comment: - Did 30 days inpatient treatment at [facility], 12/07 - consult social insurance specialist Status: Chronic (8) Hypothyroidism: Problem comment: on replacement - elevated TSH yesterday may be secondary to inability to take her medications for a week due to vomiting as well as stress. Recheck in the clinic in a month. Status: Acute (9) Generalized anxiety disorder: Status: Acute (10) Major depressive disorder: Problem comment: on Celexa, on treatment for since around 2004, hospitalized at [facility] 06/05 for self-infliced laceration/depression/suicidal ideation/alcohol use (had Suicidal ideation with pill overdoses at age 13 and 20), changed to Wellbutrin in 2014, did inpatient alcohol treatment at [facility] 11/2019 and switched to fluoxetine, but patient preferred to go back to bupropion 04/08 Status: Acute (11) Elevated MCV: Problem comment: Suspect related to alcohol use, no anemia. Follow. Considering peripheral blood smear. Status: Acute
[2023-01-28] MEDS: HYDROmorphone 0.5 mg/0.5 ml inj IVP ×5 (07:56→23:10)
[2023-01-28 08:54] LABS: Lactate* 0.6 mmol/L (0.5-1.9)
[2023-01-28] MEDS: ENOXAPARIN 40 MG/0.4 ML INJ SUBCUT (09:23)
--- NOTE | 2023-01-28 09:29 | CRLHL7_ITS ---
For Patients: As a result of the Century Cures Act, medical imaging exams and procedure reports are released immediately into your electronic medical record. You may view this report before your referring provider. If you have questions, please contact your health care provider. INDICATION: Pancreatitis, hepatic steatosis. COMPARISON: CT dated 01/27/2023. TECHNIQUE: Right upper quadrant ultrasound, ultrasound abdomen limited. FINDINGS: Fatty liver. No intrahepatic biliary dilatation. No gallbladder wall thickening. The gallbladder appears less distended than yesterday, measuring 4.1 cm compared to 4.8 cm on the previous CT. Common bile duct measures 4 mm. The proximal aorta measures within normal limits. The intrahepatic IVC is patent. No hydronephrosis of the right kidney. No stones. Visualized portions of the pancreas appear unremarkable. Negative sonographic Berkowizt`s sign. IMPRESSION: 1. Diffuse fatty steatosis. 2. No gallstones. The gallbladder appears less distended than 1 day prior at 4.0 cm. No pericholecystic fluid. Dictated by Juan Nichols MD @ 01/28/2023 11:11:40 AM (Electronically Signed)
[2023-01-28 09:51] LABS: Triglycerides* 113 mg/dL (40-149)
[2023-01-28] MEDS: LACTATED RINGERS 1000 ML 1,000 ML 150 ML IV ×2 (13:37→20:25)
[2023-01-28] MEDS: SODIUM CHLORIDE 0.9 % (FLUSH) 10 ML SYRINGE 5 ML IVF (19:48)
[2023-01-29] VITALS (7 sets, daily range): BP systolic 146–168; BP diastolic 95–111; PULSE 79–100; RESP 16–18; TEMP 36.2–36.4; O2SAT 97–100
[2023-01-29] MEDS: LACTATED RINGERS 1000 ML 1,000 ML 150 ML IV ×4 (03:11→22:16)
[2023-01-29] MEDS: HYDROmorphone 0.5 mg/0.5 ml inj IVP ×6 (03:11→22:17)
[2023-01-29 06:58] LABS: Albumin* 3.8 g/dL (3.3-5.0); Chloride* 100 mmol/L (96-114); Sodium* 135 mmol/L (135-149)
[2023-01-29 06:59] LABS: Potassium* 3.3 mmol/L (3.6-5.1)
--- NOTE | 2023-01-29 06:59 | PC.NURSE ---
[id number]: Patient pain controlled throughout night with PRN dilaudid. Patient slightly hypertensive but blood pressure stable and all other vitals stable. Patient remains NPO except ice chips. No bouts of diarrhea noted. patient urinating appropriately. patient remains up ad gely.
[2023-01-29 07:01] LABS: Alanine Aminotransferase* 65 U/L (4-35); Alkaline Phosphatase* 107 U/L (40-150); Aspartate Amino Transferase* 152 U/L (12-35); Bilirubin Total* 1.1 mg/dL (0.1-1.5); Blood Urea Nitrogen* 4 mg/dL (5-24); Carbon Dioxide* 26 mmol/L (20-32); Creatinine* 0.5 mg/dL (0.5-1.5); Est. Creatinine Clearance* 120.01; Estimated Glomerular Filt Rate 119 ml/min; Glucose* 60 mg/dL (60-115); Total Protein* 6.2 g/dL (6.0-8.3)
[2023-01-29 07:02] LABS: Calcium* 8.3 mg/dL (8.4-10.6)
[2023-01-29] MEDS: ENOXAPARIN 40 MG/0.4 ML INJ SUBCUT (09:07)
[2023-01-29] MEDS: SODIUM CHLORIDE 0.9 % (FLUSH) 10 ML SYRINGE 5 ML IVF ×2 (11:19→19:40)
[2023-01-29] MEDS: ONDANSETRON 2 MG/ML inj 4 MG IVP (11:53)
--- NOTE | 2023-01-29 12:19 | PM.IMPN1 ---
Progress Note: A&P Assessment and plan (1) Acute alcoholic pancreatitis: Problem details: - Acute pancreatitis, triglycerides within normal limits and right upper quadrant ultrasound does not show gallbladder disease or cholelithiasis, suspect secondary to alcohol. - improving, continue IV fluids, advance diet to clears. Can continue to advance diet today if she tolerates clears and discontinue IV fluid later today or tomorrow if she is able to take adequate p.o.. - Recommend complete abstinence from alcohol. She and I discussed support systems and that social work has been consulted to help offer treatment. Status: Suspected (2) Alcoholic hepatitis: Problem details: Supportive cares. LFTs improving. Recommend complete abstinence from alcohol. Status: Acute (3) Hepatic steatosis: Problem details: Right upper quadrant ultrasound complete, results above Status: Acute (4) Colitis: Problem details: Will need outpatient colonoscopy when acute pancreatitis and hepatitis have resolved Status: Acute (5) Hypokalemia: Problem details: Potassium remains stable, slightly low. Magnesium within normal limits. Replace orally. Recheck in morning. Status: Acute (6) Alcoholism: Problem details: - Did 30 days inpatient treatment at [facility], 12/07 - consult social insurance specialist Status: Chronic (7) Hypothyroidism: Problem details: on replacement - elevated TSH yesterday may be secondary to inability to take her medications for a week due to vomiting as well as stress. Recheck in the clinic in a month. Status: Acute Subjective Time Seen by Provider: 08:15 Date Seen: 01/29/23 Interval history: Yael got some good sleep last night. She has been trying to keep up on the pain meds and feels that her abdominal pain is improving. Slight hunger today. We had a 10 minute discussion about alcohol use and abstinence. I have recommended complete abstinence from alcohol at this point due to acute alcohol hepatitis and acute alcohol pancreatitis and the likelihood that these could flare up again should she start drinking alcohol again. She demonstrated understanding. Exam Narrative: Exam Narrative: General: No acute distress. Awake, alert, oriented. Cardiovascular: Regular rate and rhythm. No murmurs, gallops, or rubs. Chest: No increased work of breathing. Clear to auscultation bilaterally. No crackles or wheezes. Abdomen: Bowel sounds present. Soft, nondistended, less tender today. No rebound tenderness or guarding. Const: Vital Signs, click to edit/add: Vital Signs - 24 hr 01/28/23 16:17 01/28/23 19:00 01/28/23 23:00 Temperature 97.6 F 97.4 F L 97.4 F L Pulse Rate [Pulse Oximeter] 85 98 83 Respiratory Rate 16 16 16 Blood Pressure [Le ft Arm] 154/95 H 168/98 H 165/98 H Pulse Oximetry 98 97 100 Oxygen Delivery Me thod Room Air Room Air Room Air 01/28/23 23:00 01/29/23 03:00 01/29/23 07:29 Temperature 97.4 F L 97.3 F L Pulse Rate [Pulse Oximeter] 83 84 89 Respiratory Rate 16 16 16 Blood Pressure [Le ft Arm] 146/105 H 152/95 H Pulse Oximetry 100 98 Oxygen Delivery Me thod Room Air Room Air 01/29/23 09:00 01/29/23 11:16 Temperature 97.3 F L Pulse Rate [Pulse Oximeter] 91 Respiratory Rate 16 Blood Pressure [Le ft Arm] 160/100 H Pulse Oximetry 99 98 Oxygen Delivery Me thod Room Air Labs Labs: Laboratory Results - last 24 hr 01/29/23 05:50 Sodium 135 Potassium 3.3 L Chloride 100 Carbon Dioxide 26 BUN 4 L Creatinine 0.5 Estimated Creat Clear 120.01 Estimated GFR 119 Glucose 60 Calcium 8.3 L Total Bilirubin 1.1 AST 152 H ALT 65 H Alkaline Phosphatase 107 Total Protein 6.2 Albumin 3.8 Ordering Physician: Daisy Trimble M.D. Date of Service: 01/28/23 Procedure(s): US abdomen limited Accession Number(s): [id number] cc: Anu Talley M.D.; Daisy Trimble M.D.~ For Patients:? As a result of the Century Cures Act, medical imaging exams and procedure reports are released immediately into your electronic medical record.? You may view this report before your referring provider.? If you have questions, please contact your health care provider. INDICATION: Pancreatitis, hepatic steatosis. COMPARISON: CT dated 01/27/2023. TECHNIQUE: Right upper quadrant ultrasound, ultrasound abdomen limited. FINDINGS: Fatty liver. No intrahepatic biliary dilatation. No gallbladder wall thickening. The gallbladder appears less distended than yesterday, measuring 4.1 cm compared to 4.8 cm on the previous CT. Common bile duct measures 4 mm.? The proximal aorta measures within normal limits. The intrahepatic IVC is patent. No hydronephrosis of the right kidney. No stones. Visualized portions of the pancreas appear unremarkable.? Negative sonographic Berkowitz`s sign. IMPRESSION: 1. Diffuse fatty steatosis. 2. No gallstones. The gallbladder appears less distended than 1 day prior at 4.0 cm. No pericholecystic fluid. Dictated by Juan Nichols MD @ 01/28/2023 11:11:40 AM (Electronically Signed)
[2023-01-29] MEDS: SPIRONOLACTONE 25 MG TABLET 100 MG PO (14:58)
--- NOTE | 2023-01-29 18:09 | PC.NURSE ---
Pt alert and oriented. Pt had complaints of pain ranging from 4-5. See EMAR for intervention. Pt independent in room. Pt changed to clear liquid diet; had some nausea at beginning of diet. Pt tolerating well now. See EMAR for intervention. Pt walking in halls three times during shift.?
[2023-01-30 03:00] VITALS: BP 148/97; PULSE 97; RESP 18; TEMP 36.3; O2SAT 95
[2023-01-30] MEDS: LACTATED RINGERS 1000 ML 1,000 ML 150 ML IV (05:13)
[2023-01-30] MEDS: HYDROmorphone 0.5 mg/0.5 ml inj IVP (05:13)
[2023-01-30] MEDS: SODIUM CHLORIDE 0.9 % (FLUSH) 10 ML SYRINGE 5 ML IVF ×2 (05:16→08:56)
--- NOTE | 2023-01-30 05:36 | PC.NURSE ---
Shift note: Pt is doing well. Pain level has been rated at 6 maximum but get worse on activities. Bp have remained consistently high above 140 systolic. Alert and oriented and ambulate independently. Pt had adequate sleep.
[2023-01-30] MEDS: LEVOTHYROXINE 75 MCG TABLET PO (06:48)
[2023-01-30 06:58] LABS: Albumin* 3.8 g/dL (3.3-5.0); Chloride* 96 mmol/L (96-114); Potassium* 3.2 mmol/L (3.6-5.1); Sodium* 136 mmol/L (135-149)
[2023-01-30 07:00] LABS: Creatinine* 0.6 mg/dL (0.5-1.5); Est. Creatinine Clearance* 100.01; Estimated Glomerular Filt Rate 114 ml/min
[2023-01-30 07:01] LABS: Alanine Aminotransferase* 70 U/L (4-35); Alkaline Phosphatase* 108 U/L (40-150); Aspartate Amino Transferase* 145 U/L (12-35); Blood Urea Nitrogen* 2 mg/dL (5-24); Calcium* 8.7 mg/dL (8.4-10.6); Carbon Dioxide* 32 mmol/L (20-32); Glucose* 83 mg/dL (60-115); Total Protein* 6.3 g/dL (6.0-8.3)
[2023-01-30 08:15] VITALS: BP 144/108; PULSE 87; RESP 16; TEMP 36.8; O2SAT 98
[2023-01-30] MEDS: IBUPROFEN 600 MG TABLET PO (08:54)
[2023-01-30] MEDS: buPROPion XL 150 MG TABLET 450 MG PO (08:55)
[2023-01-30] MEDS: ENOXAPARIN 40 MG/0.4 ML INJ SUBCUT (08:55)
[2023-01-30] MEDS: SPIRONOLACTONE 25 MG TABLET 100 MG PO (08:55)
[2023-01-30] MEDS: POTASSIUM BICARB 25 MEQ EFFERVESCENT TAB PO (08:56)
[2023-01-30 09:00] VITALS: O2SAT 98
--- NOTE | 2023-01-30 09:14 | NUTR.NU ---
RDN with nutrition screen for pancreatitis. Patient agreed to receive diet education related to pancreatitis. Patient was provided diet education on a low fat diet. Discussed foods to include and foods to avoid. Education also provided on following a low fat diet (about 60 grams/day) long-term. Also reviewed what to look for on a nutrition food label and discussed how to read them. Verbal and written information as well as a sample menu provided from [facility]. Patient verbalized understanding. Patient's diet advanced to full liquids this morning and patient was eating breakfast during visit. Patient notes feeling better and more hungry today. Nausea noted, but reported to be improved. RDN's contact information was provided and patient was encouraged to contact RDN with questions.
--- NOTE | 2023-01-30 09:16 | P.DS_ITS ---
DS: Providers Provider Time Seen by Provider: 07:47 Date Seen: 01/30/23 Date of admission: 01/28/23 08:23 Primary care physician: Anu Talley MD Admitting Clinician: Tobias Almazan MD Consults: 01/28/23 08:23 Consult to End Finder Forming Department [CONS] Routine Comment: Reason for Consult:: Substance Abuse Screening Attending Physician on discharge: Daisy Trimble MD Date of Discharge: 01/30/23 DS: Diagnosis Discharge Diagnosis (1) Acute alcoholic pancreatitis: Status: Suspected Problem details: - Acute pancreatitis, triglycerides within normal limits and right upper quadrant ultrasound does not show gallbladder disease or cholelithiasis, suspect secondary to alcohol. - improving, advancing diet today to regular, if tolerates this, will discharge home - Recommend complete abstinence from alcohol. She and I discussed support systems and that social work has been consulted to help offer treatment. (2) Colitis: Status: Acute Problem details: Will need outpatient colonoscopy when acute pancreatitis and hepatitis have resolved (3) Hypokalemia: Status: Acute Problem details: Potassium remains stable, slightly low. Magnesium within normal limits. Restarted spironolactone yesterday, but potassium remains low. Cautious oral replacement today. Recheck as an outpatient. (4) Alcoholic hepatitis: Status: Acute Problem details: Supportive cares. LFTs improving. Recommend complete abstinence from alcohol. Follow as an outpatient. (5) Dehydration: Status: Resolved (6) Hepatic steatosis: Status: Acute Problem details: Right upper quadrant ultrasound complete, results below Recommending abstinence from alcohol and 5-10 lbs weight loss (7) Elevated MCV: Status: Acute Problem details: Suspect related to alcohol use, no anemia. Recommend abstinence from alcohol. (8) Alcoholism: Status: Chronic Problem details: - Did 30 days inpatient treatment at [facility], 12/07 (9) Hypothyroidism: Status: Acute Problem details: on replacement - elevated TSH yesterday may be secondary to inability to take her medications for a week due to vomiting as well as stress. Recheck in the clinic in a month. (10) Major depressive disorder: Status: Acute Problem details: on Celexa, on treatment for since around 2004, hospitalized at [facility] 06/05 for self-infliced laceration/depression/suicidal ideation/alcohol use (had Suicidal ideation with pill overdoses at age 13 and 20), [facility], did inpatient alcohol treatment at [facility] 11/2019 and switched to fluoxetine, but patient preferred to go back to bupropion 04/08 (11) Generalized anxiety disorder: Status: Acute DS: Summary Hospital Course Hospital Course: This is a 42-year-old female who had recently seen Dr. Talley for concerns of alcoholism and wanting to quit. About 10 days ago she started having abdominal pain, nausea and vomiting that worsened and brought her into the emergency room. She was found to have acute alcoholic pancreatitis and hepatitis. She also had colitis on CT for which she will need a colonoscopy in a few weeks when she is feeling better. Please see diagnoses above for further details. With conservative management she improved and is able to tolerate adequate oral intake. She is discharged home in stable condition. Follow-up with her primary care provider. She is aware that I have recommended complete abstinence from alcohol indefinitely. Time Spent with Patient Time attestation: Total time spent providing and/or coordinating discharge services: Exam Narrative: Exam Narrative: General: No acute distress. Awake, alert, oriented. Cardiovascular: Regular rate and rhythm. No murmurs, gallops, or rubs. Chest: No increased work of breathing. Clear to auscultation bilaterally. No crackles or wheezes. Abdomen: Bowel sounds present. Soft, nondistended, mildly tender in the epigastrium, much improved. No rebound tenderness or guarding. Const: Vital Signs, click to edit/add: Vital Signs - 24 hr 01/29/23 11:16 01/29/23 14:49 01/29/23 19:00 Temperature 97.3 F L 97.5 F L 97.2 F L Pulse Rate [Pulse Oximeter] 91 79 100 Respiratory Rate 16 18 18 Blood Pressure [Le ft Arm] 160/100 H 151/95 H 168/111 H Pulse Oximetry 98 99 97 Oxygen Delivery Me thod Room Air Room Air Room Air 01/29/23 23:00 01/29/23 23:00 01/30/23 03:00 Temperature 97.4 F L 97.4 F L Pulse Rate [Pulse Oximeter] 88 88 97 Respiratory Rate 18 18 18 Blood Pressure [Le ft Arm] 166/106 H 148/97 H Pulse Oximetry 97 95 Oxygen Delivery Me thod Room Air Room Air DS: Data Data Completed and Pending Completed studies during hospitalization: Ordering Physician: Kiel Villalobos M.D. Date of Service: 01/27/23 Procedure(s): CT abdomen pelvis w con Accession Number(s): [id number] cc: Anu Talley M.D.; Kiel Villalobos M.D.~ For Patients: As a result of the Cures Act, medical imaging exams and procedure reports are released immediately into your electronic medical record. You may view this report before your referring provider. If you have questions, please contact your health care provider. INDICATION: Mid upper abdominal pain for 1 week with vomiting, evaluate for pancreatitis TECHNIQUE: Contrast-enhanced CT of the abdomen and pelvis was performed after administration of 74 cc Isovue 370. Coronal and sagittal reformats were obtained on an independent workstation. COMPARISON: None FINDINGS: Chest: Lung bases: Calcified granuloma in the right lower lobe. No suspicious pulmonary nodules or consolidation. No basilar pleural effusion. Heart base: Unremarkable. Abdomen/Pelvis: Liver: Non-cirrhotic morphology. Diffuse hypoattenuation of the liver. No suspicious lesion. Gallbladder: Hydropic with no wall thickening or pericholecystic fluid. Bile ducts no intra or extrahepatic biliary ductal dilatation. Spleen: Normal in size. Calcified granuloma suggestive of prior granulomatous infection. Adrenal glands: Unremarkable. Kidneys: Symmetric enhancement with no hydronephrosis or nephrolithiasis bilaterally. Pancreas: No inflammation, fluid collection, mass or pancreatic ductal dilatation. Lymph nodes: No retroperitoneal, mesenteric, inguinal, or pelvic adenopathy by CT criteria. Bowel: Small and large bowel is normal in caliber, without obstruction. Normal appendix (2/109). Mucosal hyperenhancement of the cecum and colon at the hepatic flexure with liquid stool and fat stranding in the right paracolic gutter (2/81, 93, 4/62). No pneumatosis, pneumoperitoneum or portal venous gas. Vascular structures: Abdominal aorta is normal in caliber, without aneurysm. Proximal mesenteric vessels are patent. Hepatic, portal, splenic and bilateral renal veins are patent. Peritoneum: No abdominal/pelvic ascites. Abdominal Wall: Unremarkable. Urinary bladder: Limited evaluation due to underdistention. No gross pathology. Reproductive structures: IUD is in place. MSK: No acute fractures. No aggressive appearing lytic or blastic osseous lesion. IMPRESSION: 1. No CT evidence of acute pancreatitis, as clinically queried. 2. Mucosal hyperenhancement of the cecum and colon at the hepatic flexure with liquid stool and fat stranding in the right paracolic gutter suggestive of colitis of infectious or inflammatory etiology. Normal appendix. - Recommend a colonoscopy after symptomatic improvement to evaluate for any underlying lesion. 3. Diffuse hepatic steatosis. Please note that all CT scans at this facility use dose modulation, iterative reconstruction, and/or weight-based dosing when appropriate to reduce radiation dose to as low as reasonably achievable. Dictated by Marina Gr MD @ 01/28/2023 1:03:52 AM (Electronically Signed) Ordering Physician: Daisy Trimble M.D. Date of Service: 01/28/23 Procedure(s): US abdomen limited Accession Number(s): [id number] cc: Anu Talley M.D.; Daisy Trimble M.D.~ For Patients: As a result of the Cures Act, medical imaging exams and procedure reports are released immediately into your electronic medical record. You may view this report before your referring provider. If you have questions, please contact your health care provider. INDICATION: Pancreatitis, hepatic steatosis. COMPARISON: CT dated 01/27/2023. TECHNIQUE: Right upper quadrant ultrasound, ultrasound abdomen limited. FINDINGS: Fatty liver. No intrahepatic biliary dilatation. No gallbladder wall thickening. The gallbladder appears less distended than yesterday, measuring 4.1 cm compared to 4.8 cm on the previous CT. Common bile duct measures 4 mm. The proximal aorta measures within normal limits. The intrahepatic IVC is patent. No hydronephrosis of the right kidney. No stones. Visualized portions of the pancreas appear unremarkable. Negative sonographic Berkowitz`s sign. IMPRESSION: 1. Diffuse fatty steatosis. 2. No gallstones. The gallbladder appears less distended than 1 day prior at 4.0 cm. No pericholecystic fluid. Dictated by Juan Nichols MD @ 01/28/2023 11:11:40 AM (Electronically Signed) Labs on day of discharge: Labs from last 24 hours 01/30/23 05:57 Sodium 136 Potassium 3.2 L Chloride 96 Carbon Dioxide 32 BUN 2 L Creatinine 0.6 Estimated Creat Clear 100.01 Estimated GFR 114 Glucose 83 Calcium 8.7 Total Bilirubin 1.0 AST 145 H ALT 70 H Alkaline Phosphatase 108 Total Protein 6.3 Albumin 3.8 Discharge Plan Discharge Disposition: Home, Self-Care Date of Admission: 01/28/23 08:23 Attending Provider on Discharge: Daisy rTimble Primary Care Provider: Anu Talley Condition: Improved Anticipated Discharge Date/Time: 01/30/23 13:51 Discharge Medications: Continued Mirena 20 mcg/24 hours (8 yrs) 52 mg intrauterine device 1 device intrauterine ONCE Rx Instructions: as a single dose spironolactone 100 mg tablet 100 mg PO DAILY levothyroxine 75 mcg tablet 75 mcg PO DAILY Patient Comments: TAKE 1 TABLET BY MOUTH ONCE DAILY. bupropion HCl 450 mg tablet extended release 24 hr 450 mg PO DAILY Discharge Orders: Discharge Order (Routine); Ordered 01/30/23 Ordered By: Daisy Trimble Patient Education: Pancreatitis (DC), Alcoholic Hepatitis (DC) Additional Instructions: I recommend you avoid all alcohol indefinitely. Try to loose 5-10 lbs. Activity Level: No Restrictions Discharge Diet: Regular Follow Up Appointments: Anu Talley MD [Primary Care Provider] - (5-7 days, potassium level) Forms: [employer] Info Instructions
--- NOTE | 2023-01-30 10:38 | PC.SOCIAL ---
Met with pt. to offer chemical dependency. Pt. has been to inpatient CD treatment in past. Gave pt. resources on inpatient and outpatient chemical dependency treatment options within a 25 [place] radios. Pt. did not have any follow-up questions.
[2023-01-30 11:00] VITALS: BP 138/103; PULSE 98; RESP 16; TEMP 36.9; O2SAT 98
[2023-01-30] MEDS: ACETAMINOPHEN 325 MG TABLET 650 MG PO (13:45)
--- NOTE | 2023-01-30 15:48 | PC.NURSE ---
Pt was able to manage her pain with ibuprofen and tylenol on day shift. One episode of nausea treated with Q-easy aromatherapy. Pt tolerated full liquid diet advance to regular for lunch. I feel better after having some real food that is not so sugary and sweet. Pt UAL in hallway times 5. Adequate output, IV to SL to encourage PO intake. Dr. Trimble aware of patient's progress this afternoon. Pt verbalized understanding of d/c diagnosis, home meds, f/up appt, pain management plan and sx to report urgently to MD. Pt verbalized need to cease ETOH use in order to prevent recurrence of pancreatitis and sx of liver impairment/damage. Ambulatory d/c to own home with her friends from radiology w/all personal belongings @ 1442 pm.
[2023-01-30 23:46] LABS: Hours Collected Random hr; Total Volume Random mL
== END 2023-01-30 14:42 | disposition home or self-care (01) | DRG 439 ==
LOC: ED 23:05 → MEDSURG 01-28 01:00
PROVIDERS: Internal Medicine; Admitting Provider Hospitalist; Emergency Provider Family Medicine; PCP Internal Medicine; Visit Provider Family Medicine
DX: K85.20 Alcohol induced acute pancreatitis without necrosis or infection (principal); E87.1 Hypo-osmolality and hyponatremia; F10.20 Alcohol dependence, uncomplicated; K70.10 Alcoholic hepatitis without ascites; E86.0 Dehydration; K52.9 Noninfective gastroenteritis and colitis, unspecified; E87.6 Hypokalemia; F41.1 Generalized anxiety disorder; F32.9 Major depressive disorder, single episode, unspecified; I10 Essential (primary) hypertension; K76.0 Fatty (change of) liver, not elsewhere classified; E03.9 Hypothyroidism, unspecified
CPT/HCPCS: 36415; 74177; 76705; 80048; 80053; 80076; 80306; 81001; 82077; 83605; 83690; 83735; 84300; 84443; 84478; 85025; 86140; 87086; 94761; 99284; 99285; A9270; G0378; J1170; J1650; J2270; J2405; J7030; J7120; Q9967

== ENCOUNTER 2023-02-06 09:46 | Outpatient (CLI) | payer OTHER, SELFPAY | END 2023-02-06 09:47 | disposition home or self-care (01) | PROVIDERS: PCP Internal Medicine; Visit Provider Internal Medicine | DX: K85.20 Alcohol induced acute pancreatitis without necrosis or infection (principal); E87.6 Hypokalemia; E03.9 Hypothyroidism, unspecified; N39.0 Urinary tract infection, site not specified | CPT/HCPCS: 80053; 83690 ==

== ENCOUNTER 2023-07-09 08:42 | Outpatient (CLI) | payer OTHER, SELFPAY ==
--- NOTE | 2023-07-09 11:30 | CRLHL7_ITS ---
For Patients: As a result of the Cures Act, medical imaging exams and procedure reports are released immediately into your electronic medical record. You may view this report before your referring provider. If you have questions, please contact your health care provider. BILATERAL SCREENING MAMMOGRAM WITH COMPUTER-AIDED DETECTION AND TOMOSYNTHESIS TECHNIQUE: CC and MLO views were obtained. These mammographic images have been obtained using full-field digital technique. These mammographic images were interpreted with the benefit of computer-aided detection. Breast Tomosynthesis was used in this interpretation. COMPARISON FILM: 05/09/22, 12/24/20, 12/13/20, 12/07/20. FINDINGS: The breasts are heterogeneously dense, which may obscure small masses IMPRESSION: There is no radiographic evidence for malignancy. ASSESSMENT: BI-RADS Category 2: Benign RECOMMENDATION: Routine screening mammogram in 1 year. A lay language report of this examination will be provided to the patient. Kiel Escamilla M.D. Diagnostic Radiologist [email or web address] PO/erick Transcribed: 12:42 p.juan a suarez/Dictated by: Kiel Escamilla MD @ 07/09/2023 10:14:00 AM (Electronically Signed)
== END 2023-07-09 08:43 | disposition home or self-care (01) ==
PROVIDERS: PCP Internal Medicine; Visit Provider Internal Medicine
DX: Z12.31 Encounter for screening mammogram for malignant neoplasm of breast (principal); R92.2 Inconclusive mammogram
CPT/HCPCS: 77063; 77067

== ENCOUNTER 2024-02-11 09:10 | Outpatient (CLI) | payer OTHER, SELFPAY ==
--- OUTSIDE RECORDS SUMMARY | 2024-02-11 12:55 | XMS_ITS | Clinical Summary ---
Author Organization [facility] Address [place], [place] [address] Care Team Providers Care Coding Director Name Role Phone Anu Talley MD Primary Care Provider [phone] Allergies No known active allergies Medications Medication Sig Dispensed Refills Start Date End Date Status levothyroxine (SYNTHROID) 75 mcg tablet Take 75 mcg by mouth once daily. 06/28/2017 Active spironolactone (ALDACTONE) 100 mg tablet Take 100 mg by mouth once daily. 06/28/2017 Active buPROPion (WELLBUTRIN XL) 300 mg Extended-Release tablet Take 300 mg by mouth once daily. 05/29/2017 Active buPROPion (WELLBUTRIN XL) 150 mg Extended-Release tablet Take 150 mg by mouth once daily. 06/28/2017 Active Active Problems Problem Noted Date Diagnosed Date Cervical herniated disc 07/25/2017 Cervical radicular pain 07/25/2017 Social History Tobacco Use Types Packs/Day Years Used Date Smoking Tobacco: Never Smokeless Tobacco: Never Tobacco Cessation:Counseling Given: Yes Alcohol Use Standard Drinks/Week Comments Yes 0 (1 standard drink = 0.6 oz pur e alcohol) socially Social Connections Answer Date Recorded Frequency of Communication with Friends and Fami ly Not on file 08/20/2021 Financial Resource Strain Answer Date R ecorded Difficulty of Paying Living Expenses Not on file 08/20/2021 Difficulty of Paying Living Expenses Not on file 08/20/2021 Sex and Gender Information Value Date Recorded Sex Assigned at Not on file Gender Identity Not on file Sexual Orientation Not on file Obstetrics History Last Filed Vital Signs Vital Sign Reading Time Taken Comments Blood Pressure 130/85 10/29/2020 8:03 AM [employer] Pulse 78 10/29/2020 8:03 AM [employer] Temperature 36.7 ??C (98 ??F) 10/29/2020 8:03 AM [employer] Respiratory Rate - - Oxygen Saturation 98% 10/29/2020 8:03 AM [employer] Inhaled Oxygen Concentration - - Weight 72.4 kg (159 lb 9.6 oz) 10/18/2020 8:23 A M [employer] shoes on Height 160 cm (5' 3) 07/25/2017 1:49 PM [employer] Body Mass Index 28.27 07/25/2017 1:49 PM [employer] Plan of Treatment Health Maintenance Due Date Last Done Comments Tdap 1990 Depression screening for age 12+ 1991 HIV for age 15-65 1994 Hepatitis C screening for ag e 18-79 1997 Tetanus booster 1999 BMI (ht and wt on same day) for age 18+ 07/25/2018 07/25/2017 COVID-19 vaccine series (2022- season) 2023 Influenza for age 9-49 04/20/2024 Pap test for age 21-65 03/12/2026 , 03/12/2023 Pneumococcal series for age 6-64 Aged Out No longer eligible b ased on patient's age to complete this topic Procedures Procedure Name Priority Date/Time Associated Diagnosis Comments HPV THIN PREP Routine 03/12/2023 2:50 PM CDT from Last 3 Months or Most Recently Relevant to Health Maintenance Results * HPV HIGH RISK (03/12/2023 2:50 PM CDT) TYPE 16 Negative Negative 03/19/2023 1:25 PM CDT [facility] TYPE 18 Negative Negative 03/19/2023 1:25 PM CDT [facility] OTHER HIGH RISK TYPES Negative Negative 03/19/2023 1:25 PM CDT [facility] Other (Cervical) 03/12/2023 2:50 PM CDT 03/15/2023 2:02 PM CDT Narrative [facility] - 03/19/2023 1:25 PM CDT HPV types 16, 18, 31, 33, 35, 39, 45, 51, 52, 56, 58, 59, 66 and 68 DNA were undetectable or below the pre-set threshold. Methodology: Lobito Dontrell 4800 HPV Test Nancy Tran MD MICROBIOLO GY [facility] [address] [place] [address], from Last 3 Months or Most Recently Relevant to Health Maintenance Care Teams Coding Director Relationship Specialty Start Date End Date Anu Talley MD [address] [place] [address] PCP - General Internal Medicine 07/25/17
== END 2024-02-11 09:11 | disposition home or self-care (01) ==
LOC: NFLDREF 12:53
PROVIDERS: PCP Internal Medicine; Referring Provider Internal Medicine; Visit Provider Internal Medicine
DX: D64.9 Anemia, unspecified (principal); E03.9 Hypothyroidism, unspecified; Z51.81 Encounter for therapeutic drug level monitoring
CPT/HCPCS: 80053; 84439; 84443

== ENCOUNTER 2024-08-26 13:43 | Outpatient (CLI) | payer OTHER, SELFPAY ==
--- NOTE | 2024-08-26 14:40 | CRLHL7_ITS ---
For Patients: As a result of the Century Cures Act, medical imaging exams and procedure reports are released immediately into your electronic medical record. You may view this report before your referring provider. If you have questions, please contact your health care provider. BILATERAL SCREENING MAMMOGRAM WITH COMPUTER-AIDED DETECTION AND TOMOSYNTHESIS TECHNIQUE: CC and MLO views were obtained. These mammographic images have been obtained using full-field digital technique. These mammographic images were interpreted with the benefit of computer-aided detection. Breast Tomosynthesis was used in this interpretation. COMPARISON FILM: 07/09/23, 05/09/22, 12/24/20. FINDINGS: The breasts are heterogeneously dense, which may obscure small masses. IMPRESSION: There is no radiographic evidence for malignancy. ASSESSMENT: BI-RADS Category 2: Benign RECOMMENDATION: Routine screening mammogram in 1 year. A lay language report of this examination will be provided to the patient. Kiel Escamilla M.D. Diagnostic Radiologist [email or web address] SP/Dictated by: Kiel Escamilla MD @ 08/27/2024 9:20:00 AM (Electronically Signed)
== END 2024-08-26 13:44 | disposition home or self-care (01) ==
LOC: MAMMO 13:43
PROVIDERS: PCP Internal Medicine; Visit Provider Internal Medicine
DX: Z12.31 Encounter for screening mammogram for malignant neoplasm of breast (principal); R92.333 Mammographic heterogeneous density, bilateral breasts
CPT/HCPCS: 77063; 77067

== ENCOUNTER 2025-03-31 15:45 | Outpatient (CLI) | payer OTHER, SELFPAY | END 2025-03-31 15:46 | disposition home or self-care (01) | PROVIDERS: PCP Internal Medicine; Visit Provider Internal Medicine | DX: E03.9 Hypothyroidism, unspecified (principal); K76.0 Fatty (change of) liver, not elsewhere classified; F10.21 Alcohol dependence, in remission | CPT/HCPCS: 80053; 80061; 84443 ==

== ENCOUNTER 2025-04-02 16:39 | Outpatient (CLI) | payer OTHER, SELFPAY ==
--- NOTE | 2025-04-02 | CRLHL7_ITS ---
For Patients: As a result of the Cures Act, medical imaging exams and procedure reports are released immediately into your electronic medical record. You may view this report before your referring provider. If you have questions, please contact your health care provider. INDICATION: Family history of brain aneurysm. TECHNIQUE: 3D TOF MRA, DWI, ADC images obtained. FINDINGS: There is normal signal throughout the intracranial vasculature. No aneurysm is identified. There has been no recent ischemic injury to the brain. IMPRESSION: Unremarkable MRA head. Dictated by Nima Ordaz MD @ 04/03/2025 12:45:43 PM (Electronically Signed)
== END 2025-04-02 16:40 | disposition home or self-care (01) ==
PROVIDERS: PCP Internal Medicine; Visit Provider Internal Medicine
DX: Z13.6 Encounter for screening for cardiovascular disorders (principal); Z82.49 Family history of ischemic heart disease and other diseases of the circulatory system
CPT/HCPCS: 70544